=== PATIENT | female | born 1990 | race African-American/Black ===

== ENCOUNTER 2023-04-15 22:51 | Emergency (ER) | payer OTHER, SELFPAY ==
[2023-04-15 22:52] VITALS: BP 147/102; PULSE 83; RESP 20; TEMP 36.1; O2SAT 100
--- NOTE | 2023-04-15 23:34 | ED.DENTAL ---
HPI - Dental/Oral General Chief complaint: Dental/Oral Stated complaint: tooth ache Time Seen by Provider: 04/15/23 23:07 Source: patient Mode of arrival: ambulatory Limitations: no limitations History of Present Illness HPI Narrative: Patient is a 32 y/o female who presents to the ED with c/o R upper dental pain. Reports she has had ongoing issues with 2 separate teeth in her right upper mouth for the last several months, #s 5 and 3. She was supposed to undergo dental extraction last Sunday, but states there was a scheduling issue and she was rescheduled for 04/27. Patient reports she developed worsening pain tonight, extending up into her upper jaw and R ear. Denies any significant swelling. Denies difficulty breathing or swallowing. Denies fever. Denies drainage from tooth or ear. Patient took 800 mg ibuprofen prior to arrival. Related Data Allergies Allergy/AdvReac Type Severity Reaction Status Date / Time latex Allergy Hives Verified 04/15/23 22:58 Penicillins Allergy Rash Verified 04/15/23 22:58 Review of Systems Review of Systems: CONSTITUTIONAL: Denies fever, chills, or sweats. ENT: See HPI. RESPIRATORY: Denies dyspnea. GASTROINTESTINAL: Denies abdominal pain, nausea, vomiting. All systems reviewed & are unremarkable except as noted in HPI and below Exam Narrative: GENERAL: Well appearing, well-nourished, non-toxic, in no acute distress. HEAD: Normocephalic, atraumatic. ENT: Mucous membranes moist. No stridor or trismus. Tenderness to palpation surrounding inner and outer gum lines of teeth #3 and 5 on right upper mouth. No evidence for focal abscess. No drainage. No bleeding. Uvula midline. No tonsillar hypertrophy or exudate. No posterior pharynx erythema. NECK: Supple. No adenopathy, no masses. RESPIRATORY: Airway patent, respirations nonlabored. Clear to auscultation bilaterally, no rales, rhonchi, wheezing. CARDIOVASCULAR: Regular rate and rhythm without murmurs, rubs, or gallops. Radial pulses 2+ and equal bilaterally. MUSCULOSKELETAL: Moves all extremities. Strength/ROM intact without gross deformities. SKIN: Warm, dry, normal color. No rashes. NEURO: A&O X3. Speech clear. Cranial nerves II-XII grossly intact. Steady gait. No ataxic movements. PSYCHIATRIC: Appropriate mood and affect. Normal interaction. Course Vital Signs Vital signs: Vital Signs Temperature 97 F L 04/15/23 22:52 Pulse Rate 83 04/15/23 22:52 Respiratory Rate 20 04/15/23 22:52 Blood Pressure 147/102 H 04/15/23 22:52 Pulse Oximetry 100 04/15/23 22:52 Oxygen Delivery Room Air 04/15/23 22:52 Temperature 97 F L 04/15/23 22:52 Pulse Rate 83 04/15/23 22:52 Respiratory Rate 20 04/15/23 22:52 Blood Pressure 147/102 H 04/15/23 22:52 Pulse Oximetry 100 04/15/23 22:52 Oxygen Delivery Room Air 04/15/23 22:52 MDM - Dental/Oral MDM Narrative Medical decision making narrative: Patient's pain is consistent with dental caries. There are no focal signs of space-occupying abscess. The patient is controlling secretions well without signs of airway compromise. Patient is felt reasonable for outpatient follow-up with dental evaluation. She has appointment scheduled on 04/27. Will cover for potential infection with Augmentin. Patient has tolerated amoxicillin in the past. Will prescribe a few pain pills for further pain management at home. Patient given return precautions. Discharged in stable condition. Medical Records Attestation: I reviewed the patient's medical records. Lab Data Attestation: I reviewed the patient's lab results. Labs: Lab Results 04/16/23 Range/Units 00:02 POC Capillary Glucose 101 (65-105) mg/dl Discharge Plan Discharge Clinical Impression: Dental caries, Toothache Patient Disposition: Home, Self-Care Condition: Stable Instructions: Antibiotic Form, Toothache (ED) Additional Instructions: Take antibiotics as prescribed. Recomm
[2023-04-16] MEDS: AMOXICILLIN/CLAVULANATE K 875-125 MG TAB 1 TABLET PO
[2023-04-16] MEDS: HYDROcodone/acetaminophen (*CRX) 5-325 MG TABLET 1 TAB PO
[2023-04-16 00:04] LABS: Glucose Point of Care 101 mg/dl (65-105)
== END 2023-04-16 00:08 | disposition home or self-care (01) ==
PROVIDERS: Emergency Provider Physician Assistant
DX: K02.9 Dental caries, unspecified (principal); K08.89 Other specified disorders of teeth and supporting structures
CPT/HCPCS: 82948; 99283; A9270